=== PATIENT | male | born 1985 | race Caucasian/White ===

== ENCOUNTER 2017-08-23 18:08 | Emergency (ER) | payer SELFPAY ==
[2017-08-23] MEDS ORDERED: NA CHLORIDE 0.9% 1,000 ML ONE (19:03)
[2017-08-23 19:44] LABS: Absolute Monocytes 0.6 K/uL (0.1-1.3); Absolute Neutrophil 7.4 K/uL (1.8-8.0); Basophils % 0.3 % (0-1.3); Bicarbonate 23 mEq/L (21-31); Eosinophils % 0.4 % (0-4.4); Glucose Level 131 mg/dL (65-120); Hematocrit 45.7 % (39.6-49.0); MCH 29.1 pg (27.0-35.0); MCV 87.2 fL (80-100); MPV 9.3 fL (7.6-11.3); Monocytes % 6.2 % (3.3-12.3); Potassium 4.9 mEq/L (3.6-5.0); RBC Red Blood Cell Count 5.24 M/uL (4.33-5.43); Sodium Level 137 mEq/L (135-145)
[2017-08-23 19:46] LABS: Protime INR 1.06
[2017-08-23 20:01] LABS: ALT/SGPT 45 IU/L (10-60); AST/SGOT 37 IU/L (10-42); Albumin 4.6 g/dL (3.2-5.5); Alkaline Phosphatase 77 IU/L (42-121); BUN Blood Urea Nitrogen 15 mg/dL (6-20); Bilirubin Direct 0.4 mg/dL (0-0.2); Bilirubin Total 1.7 mg/dL (0.3-1.2); Protein, Total 7.6 g/dL (6.0-8.3)
[2017-08-23 20:20] LABS: Alcohol Serum/Plasma < 10 mg/dl
[2017-08-23 22:40] LABS: Urine Blood NEGATIVE (NEG); Urine Glucose NEGATIVE (NEG); Urine Protein 1+ (NEG); Urine Specific Gravity >1.030 (1.005-1.030); Urine pH 5.5 (5.0-7.0)
[2017-08-23 22:47] LABS: Barbiturates NEGATIVE; Benzodiazepines NEGATIVE; Cocaine POSITIVE; METHAMPHETAM NEGATIVE (NEGATIVE); Opiates NEGATIVE; Phencyclidine NEGATIVE; THC Cannibis NEGATIVE
--- NOTE | 2017-08-23 22:58 | ER ---
Nurse's Notes [facility] Name: Rafa Alfaro Age: 31 yrs Sex: Male : 1985 Arrival Date: 08/23/2017 Time: 18:13 Bed 25 Private MD: Diagnosis: Cocaine abuse;Adjustment disorder with depressed mood Presentation: 08/23 18:13 Presenting complaint: [facility] [place] reports that patient's family ss called because they were concerned after finding patient's care parked in the yard with all his belongings. Patient was found carrying a shotgun with one round in the gun. Patient states, "I was just having a bad day and just walking around thinking with the shotgun. I feel good now. I could think about it all day long, but I could never bring myself to actually going through with it." Pt denies suicidal/ homicidal ideations at this time. Transition of care: patient was not received from another setting of care. Onset of symptoms is unknown. Risk Assessment: Do you want to hurt yourself or someone else? Other: Not currently, but had suicidal thoughts prior to arrival. Initial Sepsis Screen: Does the patient meet any 2 criteria? No. Patient's initial sepsis screen is negative. Does the patient have a suspected source of infection? No. Patient's initial sepsis screen is negative. Care prior to arrival: None. 18:13 Method Of Arrival: Law Enforcement: [facility] 18:13 Acuity: JEANNIE 2 ss Historical: - Allergies: 18:19 BenGay; ss - Home Meds: 18:19 None [Active]; ss - PMHx: 18:19 psoriasis; ss - PSHx: 18:19 None; ss - Immunization history:: Adult Immunizations up to date. - Social history:: Smoking status: Patient uses tobacco products, denies chronic smoking, but will smoke occasionally. - Ebola Screening: : Patient denies exposure to infectious person Patient denies travel to an Ebola-affected area in the 21 days before illness onset. Screenin:39 Abuse screen: Denies threats or abuse. Nutritional screening: No deficits noted. eb1 Tuberculosis screening: No symptoms or risk factors identified. Fall Risk None identified. Assessment: 18:38 General: Appears in no apparent distress. comfortable, Behavior is calm, cooperative, eb1 appropriate for age. Pain: Denies pain. Neuro: No deficits noted. Cardiovascular: No deficits noted. Respiratory: No deficits noted. Airway is patent Respiratory effort is even, unlabored, Respiratory pattern is regular, symmetrical. GI: No deficits noted. Abdomen is flat, Bowel sounds present X 4 quads. Abd is soft and non tender X 4 quads. : No signs and/or symptoms were reported regarding the genitourinary system. EENT: No signs and/or symptoms were reported regarding the EENT system. Derm: No signs and/or symptoms reported regarding the dermatologic system. Musculoskeletal: No signs and/or symptoms reported regarding the musculoskeletal system. Capillary refill < 3 seconds, Range of motion: intact in all extremities. Psych: 18:40 Subjective: Patient's mood is sad, Having thoughts of suicide. Plan for suicide is was eb1 thinking of using shotgun, does have access. Objective: Patient is cooperative, Speech is normal, Affect is flat, Patient has mutilated themselves by none noted. Interventions: Removed personal items and placed in bag. Patient placed in hospital gown. Searched person for dangerous items. Urine collected and sent for urine drug test. Suicide Risk Assessment: Sad Person Scale: Sex of patient: Male: Score 1 point. Age of patient: Score 1 point if patient 15-34. Depression: Score 1 point if signs of depression are present. Previous Attempt: Score 1 point if patient has previously attempted suicide. Substance Abuse: Score 0 point if patient does not abuse alcohol or drugs. Rational Thinking: Score 0 point if patient has rational thinking. Social Support: Score 0 if social support is present/available. Organized Plan: Score 1 point if patient had a plan in place. Relationship: Score 1 point if patient is , , , or for a single male Chronic Sickness: Score 0 point if patient does not have a chronic illness, debilitating, or severe disorder. TOTAL POINTS: If total points are 5-6, proposed clinical action is to strongly consider hospitalization, depending upon confidence in the follow-up arrangement. Implement suicide precautions. Safety Checks: Personal items have been removed. Door is open. No visitors are present at this time. Pt denies substance abuse. Commitment: Patient will be a voluntary commitment. Vital Signs: 18:19 Resp 15; Weight 95.25 kg; Height 5 ft. 9 in. (175.26 cm); Pain 0/10; ss 20:19 BP 130 / 63; Pulse 76; Resp 18; Temp 98.2(O); Pulse Ox 98% on R/A; eb1 23:06 BP 118 / 83; Pulse 84; Resp 16; Temp 98.2(O); Pulse Ox 98% on R/A; eb1 18:19 Body Mass Index 31.01 (95.25 kg, 175.26 cm) ED Course: 18:13 Patient arrived in ED. ss 18:15 Vinny Quintana PA is PHCP. cp 18:15 Ganga Fowler MD is Attending Physician. cp 18:18 Triage completed. ss 18:19 Arm band placed on right wrist. ss 18:43 Patient has correct armband on for positive identification. Placed in gown. Bed in low eb1 position. Call light in reach. 18:50 Missed attempt(s): 22 gauge forearm. Bleeding controlled, band aid applied, catheter tt1 tip intact. 19:00 Inserted saline lock: 22 gauge in left hand, using aseptic technique. Blood collected. eb1 23:07 No provider procedures requiring assistance completed. eb1 23:08 IV discontinued, intact, bleeding controlled, No redness/swelling at site. Pressure eb1 dressing applied. Administered Medications: 19:13 Drug: NS 0.9% 1000 ml Route: IV; Rate: 1 bolus; Site: left hand; eb1 23:08 Follow up: Response: No adverse reaction; IV Status: Completed infusion; IV Intake: eb1 1000ml Intake: 23:08 IV: 1000ml; Total: 1000ml. eb1 Outcome: 22:58 Discharge ordered by . cp 23:07 Discharged to home ambulatory. eb1 23:07 Condition: stable 23:07 Discharge instructions given to patient, Instructed on discharge instructions, follow up and referral plans. Demonstrated understanding of instructions, follow-up care. 23:09 Patient left the ED. eb1 Signatures: Tara Dey RN RN Vinny Quintana PA PA cp Thymes, Tracy tt1 Erika Rios RN RN eb1
--- NOTE | 2017-08-23 22:58 | EDPHYS ---
Physician Documentation [facility] Name: Rafa Alfaro Age: 31 yrs Sex: Male : 1985 Arrival Date: 08/23/2017 Time: 18:13 Bed 25 Private MD: ED Physician Ganga Fowler HPI: 08/23 18:20 This 31 yrs old Male presents to ER via Law Enforcement with complaints of cp Suicidal Ideation. 18:20 The patient presents to the emergency department with suicide ideation, and the patient cp has a plan, to shoot self. Onset: The symptoms/episode began/occurred this morning. Past psychiatric history: Prior diagnosis: no previous psychiatric diagnosis known, Psychiatric medications include: none, the patient has not had a prior suicide gesture, the patient does not have a previous inpatient psychiatric history. Associated signs and symptoms: The patient has no apparent associated signs or symptoms. 18:20 Severity of symptoms: in the emergency department the symptoms have improved markedly. cp 18:20 Patient brought to ED by law enforcement after family called with concern that patient cp may harm himself. Patient reportedly took father's shotgun and was found in the [place] after several hours. Patient admits to considering suicide but reports he could not go through with hurting himself. Patient reports increased stress due to family situation. Historical: - Allergies: 18:19 BenGay; ss - Home Meds: 18:19 None [Active]; ss - PMHx: 18:19 psoriasis; ss - PSHx: 18:19 None; ss - Immunization history:: Adult Immunizations up to date. - Social history:: Smoking status: Patient uses tobacco products, denies chronic smoking, but will smoke occasionally. - Ebola Screening: : Patient denies exposure to infectious person Patient denies travel to an Ebola-affected area in the 21 days before illness onset. ROS: 18:30 Constitutional: Negative for body aches, chills, fever, poor PO intake. cp 18:30 Eyes: Negative for injury, pain, redness, and discharge. cp 18:30 ENT: Negative for drainage from ear(s), ear pain, sore throat, difficulty swallowing, cp difficulty handling secretions. 18:30 Neck: Negative for pain with movement, pain at rest, stiffness, tenderness. 18:30 Cardiovascular: Negative for chest pain, palpitations. 18:30 Respiratory: Negative for cough, shortness of breath, wheezing. 18:30 Abdomen/GI: Negative for abdominal pain, nausea, vomiting, and diarrhea, black/tarry stool, rectal bleeding. 18:30 Back: Negative for pain at rest, pain with movement, radiated pain. 18:30 : Negative for urinary symptoms. 18:30 Skin: Negative for cellulitis, rash. 18:30 Neuro: Negative for altered mental status, headache, syncope, near syncope, weakness. 18:30 All other systems are negative. Exam: 18:35 Constitutional: The patient appears in no acute distress, alert, awake, comfortable, cp non-diaphoretic, non-toxic, well developed, well nourished. 18:35 Head/Face: Normocephalic, atraumatic. cp 18:35 Eyes: Periorbital structures: appear normal, Pupils: equal, round, and reactive to light and accomodation, Extraocular movements: intact throughout, Conjunctiva: normal, no exudate, no injection, Sclera: no appreciated abnormality, Lids and lashes: appear normal, bilaterally. 18:35 ENT: External ear(s): are unremarkable, Ear canal(s): are normal, clear, TM's: are normal, no evidence of bulging, no erythema, dullness, bilaterally, Nose: is normal, Mouth: is normal, Posterior pharynx: is normal, airway is patent, no erythema, no exudate, Voice: is normal. 18:35 Neck: ROM/movement: is normal, is supple, without pain, no range of motions limitations, no nuchal rigidity. 18:35 Chest/axilla: Inspection: normal, Palpation: is normal, no crepitus, no tenderness. 18:35 Cardiovascular: Rhythm: regular. 18:35 Respiratory: the patient does not display signs of respiratory distress, Respirations: normal, no use of accessory muscles, no retractions, no splinting, no tachypnea, labored breathing, is not present, Breath sounds: are clear throughout, no decreased breath sounds, no stridor, no wheezing. 18:35 Abdomen/GI: Inspection: abdomen appears normal, Bowel sounds: active, all quadrants, Palpation: abdomen is soft and non-tender, in all quadrants, rebound tenderness, is not appreciated, voluntary guarding, is not appreciated, involuntary guarding, is not appreciated. 18:35 Back: pain, is absent, ROM is normal. 18:35 Skin: cellulitis, is not appreciated, no rash present. 18:35 Neuro: Orientation: to person, place \T\ time. Mentation: lucid, able to follow commands, Cerebellar function: is grossly normal, Motor: moves all fours, strength is normal, Sensation: no obvious gross deficits, Gait: is steady, at a normal pace, without difficulty. 18:35 Psych: Behavior/mood is pleasant, cooperative, Affect is calm, Judgement / Insight is normal. noted suicide gesture. Vital Signs: 18:19 Resp 15; Weight 95.25 kg; Height 5 ft. 9 in. (175.26 cm); Pain 0/10; ss 20:19 BP 130 / 63; Pulse 76; Resp 18; Temp 98.2(O); Pulse Ox 98% on R/A; eb1 23:06 BP 118 / 83; Pulse 84; Resp 16; Temp 98.2(O); Pulse Ox 98% on R/A; eb1 18:19 Body Mass Index 31.01 (95.25 kg, 175.26 cm) ss MDM: 18:15 Patient medically screened. cp 18:30 Differential diagnosis: drug withdrawal. acute psychotic break, depression, psychosis cp secondary to non-compliance, suicidal ideation. 22:00 ED course: VSS. Patient evaluated by Violetta Watson and felt stable for discharge with cp outpatient f/u recommended. 22:50 Data reviewed: vital signs, nurses notes, lab test result(s), EKG. cp 22:55 Test interpretation: by ED physician or midlevel provider: ECG. 22:55 Counseling: I had a detailed discussion with the patient and/or guardian regarding: the cp historical points, exam findings, and any diagnostic results supporting the discharge/admit diagnosis, lab results, the need for outpatient follow up, Violetta Watson, to return to the emergency department if symptoms worsen or persist or if there are any questions or concerns that arise at home. ED course: VSS. [facility] reports firearm removed and returned to father who has locked up firearm. Patient admits to fleeting thoughts of suicide today but thoughts are gone and patient reports no current thoughts to harm himself or others. Will discharge to home for continued monitoring by family. 08/23 18:18 Order name: Acetaminophen; Complete Time: 21:11 cp / 21:11 Interpretation: Reviewed. cp 08/23 18:18 Order name: Basic Metabolic Panel; Complete Time: 21:11 cp 08/23 21:11 Interpretation: Normal except: GLUC 131; GFR 75. cp 08/23 18:18 Order name: CBC with Diff; Complete Time: 21:11 cp 08/23 21:12 Interpretation: Reviewed. cp 08/23 18:18 Order name: ETOH Level; Complete Time: 21:11 cp 08/23 18:18 Order name: Hepatic Function; Complete Time: 21:11 cp 08/23 21:11 Interpretation: Normal except: BILIT 1.7; BILID 0.4. cp 08/23 18:18 Order name: PT-INR; Complete Time: 21:11 cp 08/23 18:18 Order name: Ptt, Activated; Complete Time: 21:11 cp 08/23 18:18 Order name: Salicylate; Complete Time: 21:11 cp 08/23 18:18 Order name: Urine Drug Screen; Complete Time: 22:47 cp 08/23 22:48 Interpretation: Normal except: PORTIA POSITIVE. cp 08/23 18:18 Order name: EKG - Nurse/Tech; Complete Time: 21:36 cp 08/23 18:19 Order name: Diet Regular; Complete Time: 18:20 cp 08/23 22:21 Order name: Urine Dipstick--Ancillary (enter results); Complete Time: 22:47 ms 08/23 22:48 Interpretation: Normal except: USPGR >1.030; UPROT 1+. cp 08/23 18:18 Order name: IV Saline Lock; Complete Time: 21:36 cp 08/23 18:18 Order name: Labs collected and sent; Complete Time: 21:36 cp 08/23 18:18 Order name: Urine Dipstick-Ancillary (obtain specimen); Complete Time: 22:16 cp Administered Medications: 19:13 Drug: NS 0.9% 1000 ml Route: IV; Rate: 1 bolus; Site: left hand; eb1 23:08 Follow up: Response: No adverse reaction; IV Status: Completed infusion; IV Intake: eb1 1000ml Disposition: 08/23/17 22:58 Discharged to Home. Impression: Cocaine abuse, Adjustment disorder with depressed mood. - Condition is Stable. - Discharge Instructions: Adjustment Disorder, Stimulant Use Disorder-Cocaine, Depression, Adult. - Medication Reconciliation Form, Thank You Letter, Antibiotic Education, Prescription Opioid Use form. - Follow up: Private Physician; When: [facility]; Reason: Recheck today's complaints. - Problem is new. - Symptoms have improved. Addendum: 08/27/2017 12:17 Co-signature as Attending Physician, Ganga Fowler MD. g s Signatures: Dispatcher [employer] EDMS Tara Dey RN RN ss Vinny Quintana PA PA cp Starr, Gregory, MD MD Erika Rios RN RN eb1 Corrections: (The following items were deleted from the chart) 08/23 23:09 22:58 08/23/2017 22:58 Discharged to Home. Impression: Cocaine abuse; Adjustment eb1 disorder with depressed mood. Condition is Stable. Forms are Medication Reconciliation Form, Thank You Letter, Antibiotic Education, Prescription Opioid Use. Follow up: Private Physician; When: [facility]; Reason: Recheck today's complaints. Problem is new. Symptoms have improved. cp
== END 2017-08-23 23:09 | disposition home or self-care (01) ==
LOC: ER 18:08
DX: F43.21 Adjustment disorder with depressed mood (principal); F14.10 Cocaine abuse, uncomplicated; Z72.0 Tobacco use; Z88.8 Allergy status to other drugs, medicaments and biological substances
CPT/HCPCS: 36415; 80048; 80076; 80307; 80320; 80329; 81003; 85025; 85610; 85730; 96360; 96361; 99284; J7030